=== PATIENT | female | born 1940 | race Caucasian/White ===

== ENCOUNTER 2021-09-04 11:21 | Inpatient (IN) | payer MEDICARE ==
[~2021-09-04] VITALS: Ht 157.5 cm; Wt 49.9 kg
[~2021-09-04 11:21] MED LIST: BENACAR; MECLIZINE 25 MG25 M1 PO; SYNTHROID50 MCG PO
[2021-09-04 13:11] VITALS: BP 102/43
[2021-09-04 13:37] LABS: ABSOLUTE LYMPHOCYTES 1.7 thou/uL (0.8-5.3); ABSOLUTE NEUTROPHILS 11.1 thou/uL (1.6-8.1); BASOPHILS 0.4 %; EOSINOPHILS 0.1 %; HEMATOCRIT 34.2 % (37.0-47.0); HEMOGLOBIN 11.3 gm/dL (12.0-15.0); LYMPHOCYTES 12.3 %; MCH 30.7 pg (26.0-34.0); MCHC 33.1 g/dL (28.0-37.0); MONOCYTES 7.2 %; MPV 10.4 fl. (7.2-11.1); NUCLEATED RBCS 0 /100WBC; PLATELET COUNT* 287 thou/uL (150-400); RBC 3.68 mil/uL (4.20-5.00); RDW-CV 13.3 % (10.5-14.5); WBC 13.9 thou/uL (4.0-11.0)
[2021-09-04 13:49] LABS: CALCIUM 9.1 mg/dL (8.5-10.1); CREATININE 0.9 mg/dL (0.6-1.3); POTASSIUM 3.6 mmol/L (3.5-5.1)
[2021-09-04 13:54] LABS: ALBUMIN 3.6 g/dL (3.4-5.0); TOTAL BILIRUBIN 0.8 mg/dL (<0.1-1.0); TOTAL PROTEIN 7.2 g/dL (6.4-8.2)
[2021-09-04 14:53] LABS: URINE BILIRUBIN NEGATIVE (Negative); URINE BLOOD 1+ (Negative); URINE CLARITY SL CLOUDY; URINE COLOR YELLOW; URINE GLUCOSE-RANDOM NEGATIVE (Negative); URINE KETONES 1+ (Negative); URINE PROTEIN 1+ (Negative); URINE SPECIFIC GRAVITY 1.015 (1.005-1.030); URINE UROBILINOGEN 0.2 E.U./dl (0.2-1.0)
[2021-09-04 14:54] LABS: URINE LEUKOCYTES-REFLEX 3+ (Negative); URINE NITRITE-REFLEX POSITIVE (Negative)
[2021-09-04] MEDS ORDERED: NORVASC5 MG PO (15:04)
[2021-09-04] MEDS ORDERED: AVAPRO300 MG PO (15:04)
[2021-09-04 15:05] LABS: HYALINE CASTS 0-3 Few /LPF (None Seen); MUCUS None Seen strn/LPF (None Seen); SQUAMOUS NONE SEEN /LPF (0-3)
[2021-09-04] MEDS ORDERED: LEVO-T75 MCG PO (15:05)
[2021-09-04] MEDS ORDERED: ZETIA10 MG PO (15:05)
[2021-09-04] MEDS ORDERED: FAMOTIDINE 20 M20 MG PO (15:05)
[2021-09-04] MEDS ORDERED: PROTONIX40 M2 PO (15:06)
[2021-09-04 15:07] LABS: TRIPLE PHOSPHATE CRYSTALS 0-3 Few /LPF (None Seen); URINE WBC-REFLEX >25 Many /HPF (0-5)
[2021-09-04] MEDS ORDERED: CHOLESTYRAMINE P4 GM PO (15:07)
[2021-09-04 15:08] LABS: URINE RBC 3-10 Few /HPF (0-2)
[2021-09-04] MEDS ORDERED: MECLIZINE HCL25 M1 PO (15:09)
[2021-09-04 18:29] VITALS: BP 104/41
[2021-09-04 22:30] VITALS: BP 115/45
[2021-09-05] VITALS (7 sets, daily range): BP systolic 104–125; BP diastolic 40–60
--- NOTE | 2021-09-05 13:35 | NUR ---
PT IS 81 Y/O FEMALE BOARDING IN [facility] FOR WEAKNESS AND RIGHT PROXIMAL HUMERUS FRACTURE. PT IS AXOX4 BUT FORGETFUL. PT STATES SHE WAS AT [facility] FOR A "UTI" BUT IS UNABLE TO REMEMBER WHEN. MOST OF PT'S ADMISSION HX/ASSESSMENT OBTAINED FROM PT'S DAUGHTER, DONTRELL. PT LIVES AT HOME WITH HER (WHO HAD A STROKE AND HAS PARKINSON'S). THEY WERE HAVING HOME HEALTH COME IN, HOWEVER, THE HOME HEALTH NURSING PERSONNEL HAS COVID, SO THEY HAVE BEEN UNABLE TO CHECK ON BOTH THE PT AND HER . DONTRELL IS AN ONLY CHILD AND SHE IS CHECKING IN ON HER PARENTS FREQUENTLY. DONTRELL STATES THAT PT HAS REMAINED RELATIVELY HEALTH, HAD A STROKE RECENTLY BUT HAS NOT REALLY SUFFERED ANY RESIDUALS OTHER THAN SOME WEAKNESS. PT WAS DIAGNOSED WITH CHRONIC DEPRESSIVE DISORDER (PT DENIES DEPRESSION WHEN ASKED). PT FELL THE DAY AFTER THANKSGIVING AND WAS TAKEN TO [facility]. DONTRELL STATES PT WAS IN A "CATATONIC STATE" AND VERBALLY ATTACKED DONTRELL. PT WAS DX W/UTI AT [facility]. PT THEN WENT TO [facility] 2 WEEKS. PER DONTRELL, PT HAS FALLEN SEVERAL TIMES, AND WILL DENY THAT SHE IS FALLING. PT GIVEN NORCO FOR PAIN, CATALINA CARE GIVEN. ROOM AIR. CALL LIGHT WITHIN REACH. WILL CONTINUE TO MONITOR PT CLOSELY.
--- NOTE | 2021-09-05 15:18 | NUR ---
Attempted assessment x2. Called greg Scott at: [phone] with no answer.
[2021-09-05] MEDS ORDERED: ASA81BEC PO (15:38)
[2021-09-05] MEDS ORDERED: CALCIUM500 M1 PO (15:42)
--- NOTE | 2021-09-05 16:59 | NUR ---
LM FOR CM RE: DONTRELL (DAUGHTER) WOULD BE BENEFICIAL TO CONTACT FOR PT INFORMATION.
--- NOTE | 2021-09-05 19:09 | NUR ---
PT PLACED ON BEDPAN W/NO RESULTS W/BM. PT INCONTINENT OF LARGE AMOUNT OF URINE TO WHERE IT SOAKED THE ENTIRE BED. PT ASSISTED TO CHAIR W/ASSIST OF 2, WILL REQUIRE PT/OT FOR STRENGTH TRAINING. PT DOES NOT HELP WITH TRANSFERS, STATES SHE CANNOT DO IT. PT CLEANED UP, LINENS CHANGED, PT ASSISTED BACK TO BED W/ASSIST OF 2. DURING ADMISSION ASSESSMENT, PT STATED, "I HAVE BEEN GOING TO THE BATHROOM." THIS SHIFT, HOWEVER, PT HAS BEEN ENTIRELY INCONTINENT OF URINE. PT STATED, "I DON'T KNOW WHEN IT'S COMING." SUPPORT AND REASSURANCE PROVIDED TO PT. GOALS THIS SHIFT: SKIN CARE, COMFORT AND PAIN MANAGEMENT.
--- NOTE | 2021-09-05 19:40 | NUR ---
PT TRANSFERRED UP TO ROOM 232 VIA BED. REPORT GIVEN TO JOEY VACA. BED ALARM ON FOR SAFETY. WILL LET DAUGHTER KNOW WHICH ROOM PT WENT TO.
[2021-09-06 01:05] VITALS: BP 130/59
[2021-09-06 06:15] VITALS: BP 138/55
[2021-09-06 08:00] VITALS: BP 124/54
--- NOTE | 2021-09-06 12:24 | NUR ---
CM ASSESSMENT: PT A&O, AND NORMALLY INDEPENDENT WITH ADL'S. PT RESIDES AT HOME WITH SPOUSE. PT USES A WALKER FOR MOBILITY. PT CURRENTLY RESIDES AT THE [facility] SR LIVING INDEPENDENT LIVING APARTMENTS WITH HER SPOUSE, BUT HE IS UNABLE TO ASSIST HER WITH CARES HE HAS PARKINSONS. PT NORMALLY INDEPENDENT WITH ADL'S. PT USES A WALKER FOR MOBILITY. PT D/C FROM SNF AT [facility] IN JUNE POST SHOULDER SURGERY. PT HAS HX OF HH WITH [facility]. PT'S DTR INFORMS THAT THE PT AND HER SPOUSE IS CURRENTLY ON A WAITING LIST FOR ASSISTED LIVING AT THE [facility]. PT MAY NEED TO RETURN TO SNF AT D/C AND PT AND HER DTR ARE INTEREST IN RETURNING TO [facility]. PT/OT EVALS PENDING. CM WILL REMAIN AVAILABLE TO ASSIST AND FOLLOW NEEDED.
[2021-09-06 13:06] VITALS: BP 122/82
[2021-09-06 17:39] VITALS: BP 133/78
--- NOTE | 2021-09-06 18:21 | NUR ---
PT WALKED WITH THERAPY TODAY. PT ATE A LITTLE BETTER THIS AFTERNOON, THIS PM PT CALLED OUT AT 1600 FOR PAIN PILL. PT GIVEN A PAIN PILL AT 1609. WENT IN TO PT ROOM AND SHE WAS CRYING THAT SHE NEEDED SOME IV PUSH PAIN MEDICATIONS, TO HELP HER WITH HER PAIN. EXPLAINED TO THE PT THAT SHE NEEDS TO TRY TO RELAX AND THAT THIS RN GAVE HER PAIN MEDICATIONS ALREADY AND SHE DOES NOT HAVE ANY IV PUSH MEDICATIONS. PT ROLLED HER EYES AT THIS RN. TOLD HER I WAS SORRY AND SHE CLOSED HER EYES. VSS AFEBRILE. WILL CONTINUE TO MONITOR PLAN OF CARE.
[2021-09-06 19:51] VITALS: BP 143/58
[2021-09-07 02:26] VITALS: BP 133/54
--- NOTE | 2021-09-07 05:03 | NUR ---
PATIENT HAS REMAINED ALERT AND ORIENTED X 4 WITH SOME FORGETFULNESS. RIGHT UPPER ARM IN SLING. NO NUMBNESS OR IMPAIRED CIRCULATION OF RIGHT HAND. INCONT URINE. WEARS BRIEF. VITAL SIGNS STABLE. MEDICATED X 2 FOR PAIN TO GOOD EFFECT. FALL PRECAUTIONS IN PLACE. CONTINUE TO MONITOR.
[2021-09-07 08:05] VITALS: BP 111/48
--- NOTE | 2021-09-07 10:08 | NUR ---
0993 - PT ASSISTED TO BSC FOR ATTEMPT TO HAVE BM. PT PIVOTED PT WAS VERY WEAK AND IT WAS NOT DEEMED SAFE BY THIS RN TO AMBULATE TO BATHROOM. PT BEGAN TO ATTEMPT TO HAVE BM, WAS UNSUCESSFUL AND DURING PUSHING, PT SLUMPED OVER TO LEFT SIDE OF THE COMMODE CHAIR, WAS COOL/CLAMMY, ABLE TO STATE HER NAME HOWEVER WAS WHISPERING RATHER THAN TALKING, EYELIDS LOW. PT ASSISTED BACK TO BED WITH SENIOR MEDICAL BILLING SPECIALIST. AFTER GETTING BACK TO BED, NEURO ASSESSED AGAIN PT WAS ALERT, ORIENTED X4, SPEAKING CLEARLY AND APPROPRIATE VOLUME, NO LONGER COOL/CLAMMY. BED ALARM SET, PT RESTING COMFORTABLY IN BED. [id number] - DR MADDEN NOTIFIED OF EVENT. NO FURTHER ORDERS.
--- NOTE | 2021-09-07 13:04 | NUR ---
PER PT REQ, PTS GARCÍA AND DAUGHTER DONTRELL UPDATED
--- NOTE | 2021-09-07 16:00 | NUR ---
REPORT GIVEN TO JOSE LUIS, NURSE ON REHAB. PT TO GO TO ROOM 320. PTS DAUGHTER DONTRELL UPDATED ON ROOM NUMBER AND CHANGE.
--- NOTE | 2021-09-07 16:17 | NUR ---
PLAN OF CARE: CM SPOKE TO THE PT AND HER DTR TO DISCUSS D/C PLANNING AND PLAN FOR THE PT TO D/C TO TO INPT ARU HERE TODAY. PT AND DTR IN AGREEMENT WITH THIS PLAN. PT HAD RAPID COVID TEST AND IT IS NEGATIVE. CM WILL REMAIN AVAILABLE TO ASSIST AND FOLLOW NEEDED.
== END 2021-09-07 16:20 | DRG 543 ==
LOC: M.ERS 11:21 → M.TBA-ER 14:29 → M.TBA-CV 09-05 19:13 → M.2W 09-05 19:35
PROVIDERS: Family Medicine; ADMIT Internal Medicine; ATTEND Internal Medicine
DX: M80.021A Age-related osteoporosis with current pathological fracture, right humerus, initial encounter for fracture (principal); R65.10 Systemic inflammatory response syndrome (SIRS) of non-infectious origin without acute organ dysfunction; N30.00 Acute cystitis without hematuria; E44.1 Mild protein-calorie malnutrition; R55 Syncope and collapse; Z20.822 Contact with and (suspected) exposure to COVID-19; R31.9 Hematuria, unspecified; Z82.49 Family history of ischemic heart disease and other diseases of the circulatory system; Z68.20 Body mass index [BMI] 20.0-20.9, adult; Z90.710 Acquired absence of both cervix and uterus

== ENCOUNTER 2021-09-07 14:52 | Inpatient (IN) | payer MEDICARE ==
[~2021-09-07] VITALS: Ht 157.5 cm; Wt 49.1 kg
--- NOTE | ~2021-09-07 | PROC ---
[address] [address] PROCEDURE REPORT Name: ZACHARY MEDEIROS Room: [facility] IN .R.#: [id number] Admission: 09/07/21 Attend Phys: Fernando Curtis MD Discharge: Date of : 38 Report #: [id number] THIS REPORT FOR: cc: HENRI PUGA MD, CHADWICK MD [facility],Medical Records Staff ~ For GI report, please see the Provation report in Perceptive 7 content. By: 1035Medical Records Staff KIRBY /LLOYD
--- NOTE | ~2021-09-07 | CON ---
[address] [address] CONSULTATION Name: ZACHARY MEDEIROS Room: [address] IN M.R.#: [id number] Admission: 09/07/21 Attend Phys: Fernando Curtis MD Discharge: Date of : 38 Report #: [id number] THIS REPORT FOR: cc: HENRI PUGA MD,Riana Montemayor MD, MD ~ cc: HENRI PUGA DATE OF CONSULTATION: 09/22/2021 Please note at the time of this dictation, the patient was seen and physically examined by myself. REASON FOR CONSULTATION: Persistent nausea. HISTORY OF PRESENT ILLNESS: This is an 81-year-old female who presented to the hospital with a closed fracture of her right proximal humerus. The patient then transferred to rehab to help with mobility and said she had no help at home. In talking with the patient, she states she has had this persistent nausea, which has been ongoing. She states prior to eating is when she gets extremely nauseated, but she knows that she has to eat and she chokes the food down, she states. She states when she does eat, she gets full very quickly as well. She denies any vomiting or any abdominal pain associated with this. The patient cannot recall her last colonoscopy, she cannot remember if she has had one done or not. She did have an EGD, EUS done back in 05/[address] Richardson for a pancreatic cyst. 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 The patient does state she had a long history of taking NSAIDs in the past, but has not done so here in the recent past. She does take omeprazole at home as well as famotidine for history of reflux. ALLERGIES: No known drug allergies. MEDICATIONS FROM HOME: Include levothyroxine, famotidine, Zetia, Protonix, Avapro, Norvasc, aspirin and calcium. PAST MEDICAL HISTORY: Hypertension, chronic depressive disorder, hyperlipidemia, history of a stroke and GERD. PAST SURGICAL HISTORY: Negative. FAMILY HISTORY: [place] [address] CONSULTATION Name: WALDEMARZACHARY ROBLERO Room: [address]#: [id number] Admission: 09/07/21 Attend Phys: Fernando Curtis MD Discharge: Date of : 38 Report #: [id number] SOCIAL HISTORY: The patient lives alone. Denies any alcohol, tobacco, or illegal drug use. REVIEW OF SYSTEMS: Twelve-point review of systems is essentially negative except what is mentioned in the HPI. PHYSICAL EXAMINATION: VITAL SIGNS: Temperature 36.8, pulse 67, respirations 17, blood pressure 159/68. HEART: Regular rate and rhythm. LUNGS: Diminished, but clear. ABDOMEN: Soft, positive bowel sounds in all 4 quadrants with no masses or tenderness noted. LABORATORY DATA: Hemoglobin is 10.9, which she has trended from 9.4 to 10.9 since her admission. White count is 7.6, platelets are 496. Sodium is 132, potassium is normal at 4.1. Her GFR is 80. Her LFTs show total bilirubin of 0.5, alkaline phosphatase of 156, ALT is 76 and AST is 32. Abdominal x-ray shows nonobstructive bowel gas pattern with moderate to large amount of retained stool throughout the colon and rectum. IMPRESSION: 1. Nausea persistent prior to eating. 2. Early satiety. 3. Anemia. 4. Elevated ALT and AST. 5. History of NSAID use in the past. 6. History of pancreatic cyst in 05/2020, status post EUS, ERCP, felt likely it was a side branch IPMN, but not seen since that procedure and followup. 7. Closed right humerus fracture. PLAN: 1. GET 4 hours to evaluate for her persistent nausea and her early satiety prior to the weekend. 2. If negative, can proceed with an EGD with Dr. Goff to evaluate her ongoing nausea. 3. We will get iron studies, B12, folate, ferritin, and a soluble transferrin receptor to evaluate her anemia. 4. Further recommendations to be made after Dr. Goff sees the patient [place] [address] CONSULTATION Name: WALDEMARZACHARY M Room: [facility] ADM IN [facility]#: [id number] Admission: 09/07/21 Attend Phys: Fernando Curtis MD Discharge: Date of : 38 Report #: [id number] Thank you for allowing us to participate in this patient's care. Please do not hesitate to call with any questions regarding this consult. By: [id number] Goff MD /leena
[~2021-09-07 14:52] MED LIST changes: +ASA81BEC PO; +AVAPRO300 MG PO; +CALCIUM500 M1 PO; +CHOLESTYRAMINE P4 GM PO; +FAMOTIDINE 20 M20 MG PO; +LEVO-T75 MCG PO; +MECLIZINE HCL25 M1 PO; +NORVASC5 MG PO; +PROTONIX40 M2 PO; +ZETIA10 MG PO
--- NOTE | 2021-09-07 18:04 | NUR ---
PT ADMITTED FROM ROOM 232. R HUMOROUS FX. SLING IN PLACE. NWB TO BHANU. DR CASILLAS NOTIFIED OF CONSULT. STATED THAT FX IS NONOPERATAL AND HE SAW HER TODAY. DR MADDEN ALSO NOTIFIED OF CONSULT. PT LIVES AT HOME WITH HER . UP WITH GAIT BELT, WALKER AND ASSIST X1. PT REPORTEDLY VASO VAGLED TODAY WHILE PREVIOUS TO BEING ADMITTED HERE. CALL LIGHT IN REACH. FALL PRECAUTIONS IN PLACE.
[2021-09-07 19:00] VITALS: BP 125/62
[2021-09-08 04:18] LABS: HEMATOCRIT 28.3 % (37.0-47.0); HEMOGLOBIN 9.4 gm/dL (12.0-15.0); MCH 30.9 pg (26.0-34.0); MCHC 33.2 g/dL (28.0-37.0); MCV 93.2 fL (80.0-100.0); MPV 9.7 fl. (7.2-11.1); RBC 3.03 mil/uL (4.20-5.00); RDW-CV 13.8 % (10.5-14.5); WBC 10.4 thou/uL (4.0-11.0)
[2021-09-08 05:05] LABS: ALBUMIN 2.5 g/dL (3.4-5.0); CALCIUM 8.3 mg/dL (8.5-10.1); CREATININE 0.7 mg/dL (0.6-1.3); TOTAL BILIRUBIN 0.5 mg/dL (<0.1-1.0); TOTAL PROTEIN 5.8 g/dL (6.4-8.2)
--- NOTE | 2021-09-08 05:08 | NUR ---
ASSUMED CARE AT 1920. ALERT AND ORIENTED. PLEASANT. RIGHT HUMERUS FRACTURE. NWB RUE IN SLING. NORCO GIVEN NEEDED. INCONTINENCE. SLEPT OFF AND ON. CALL LIGHT IN REACH AND BED ALARM ON.
[2021-09-08 07:48] VITALS: BP 123/59
--- NOTE | 2021-09-08 16:34 | NUR ---
PATIENT COMPLETED THERAPY THIS SHIFT ORDERED. UP WITH ASSISTANCE; GAIT BELT AND WALKER. RIGHT ARM SLING IN PLACE, PT HAD REPLACED THIS SHIFT WITH LARGER SLING. DR. CANDELARIO HERE THIS AFTERNOON TO SEE PATIENT, NO NEW ORDERS. PRN HYDROCODONE GIVEN X 1 THIS SHIFT. PATIENT INCONTINENT AT TIMES, DID HAVE VERY SMALL BM. WILL CONTINUE TO PRN MIRALAX/COLACE.
[2021-09-08 19:00] VITALS: BP 126/52
--- NOTE | 2021-09-08 23:22 | NUR ---
ASSUMED CARE AT 1930. PATIENT RESTING IN BED WITH SLING ON RUE. INCONTINENT OF URINE, PADS CHANGED, SKIN CARE GIVEN. TURNS SELF. UP WITH ONE AND CANE. HOURLY ROUNDS CONTINUE. BED ALARM ON. CALL LITE IN REACH.
--- NOTE | 2021-09-09 06:36 | NUR ---
SLEPT MUCH OF THE NIGHT. INCONTINENT OF URINE THROUGH NIGHT. SKIN CARE DONE, MOISTURE BARRIER APPLIED. MEDICATED FOR PAIN, SEE MAR. SLING ON RT ARM CONTINUES. ABLE TO PUSH SELF UP IN BED WHEN IT IS FLAT, AND USES HER LEFT (GOOD) ARM TO ASSIST IN RISING IN BED. HOURLY ROUNDS CONTINUE. BED ALARM ON. CALL LITE IN REACH.
[2021-09-09 08:17] VITALS: BP 125/62
--- NOTE | 2021-09-09 09:25 | NUR ---
Nutrition: Pt admitted to rehab with humerus FX. Wt: 110#. Regular diet. Albumin 2.5. PMHx, meds reviewed. No nutrition concerns at this time. Will follow weekly. Low risk.
--- NOTE | 2021-09-09 11:32 | NUR ---
ORTHO BP LAYING-114/49 SITTING-98/41 STANDING-78/48
[2021-09-09 12:54] LABS: HEMATOCRIT 30.9 % (37.0-47.0); HEMOGLOBIN 10.2 gm/dL (12.0-15.0); MCH 30.7 pg (26.0-34.0); MCHC 33.1 g/dL (28.0-37.0); MCV 92.6 fL (80.0-100.0); MPV 9.4 fl. (7.2-11.1); RBC 3.33 mil/uL (4.20-5.00); RDW-CV 13.5 % (10.5-14.5); WBC 13.1 thou/uL (4.0-11.0)
--- NOTE | 2021-09-09 13:23 | NUR ---
Admit to ARU 09/07/21 1625 post hospital admission for orthostatic syncope which resulted in Humerous fx 09/04/21. Fx medical managed/immobilized. Case and plan of care reviewed with physician and therapist weekly during patient's length of stay. Continue plan of care per physician's orders for PT/OT/ST. Spoke to pts spouse Tyler [phone] who shared pt [facility] ADLs prior to fall. Uses walker, he is unable to assist her much due to Parkinsons and Dtr Ju reports Tyler has also had a stroke. Couple currently reside in [facility] but are on a waitlist for Assisted living Sr Apartment at [place] also. Tyler requested that dtr, Ju, to be called for weekly updates as she will also be one to physically visit pt. Spoke to Dtr Ju Vigil [phone], confirmed above information from spouse. Shared pt has hx with [facility] in [place] [phone]. Both oriented to ARU processes, team conferences, and CM role.
--- NOTE | 2021-09-09 18:06 | NUR ---
PT UP WITH GAIT BELT AND 1 ASST. PT IS NON WB WITH RT ARM. PT ON RM AIR. PT FELT DIZZY AND HAD NAUSEA THIS SHIFT. PT BP WAS DROPPING WHEN SHE WAS WITH THERAPY. ORTHO BP WERE LAYING 114/49 SITTING -98/41 STANDING -78-48. DR MADDEN ORDERED 1 TIME 1000ML NS. IV WAS PLACED IN LT AC. BP AFTER WAS 129/78. PT WAS ALSO GIVEN ZOFRAN FOR NAUSEA. PT FEELING BETTER SITTING IN CHAIR, WITH CALL LIGHT IN REACH AND FALL PRECAUTIONS IN PLACE.
[2021-09-09 19:42] VITALS: BP 118/47
--- NOTE | 2021-09-10 05:11 | NUR ---
ASSUMED PT CARE AT 1930. PT SITTING UP IN RECLINER AT SHIFT CHANGE. TRANSFERRED TO [facility] [place]IST OF ONE, STAND PIVOT, STOOL 1. PT WEARING SLING TO RUE. WEARS SLING OVERNIGHT. INCONTINENT OF URINE, PERICARE PROVIDED. TURNS SELF. NORCO ONCE FOR ARM PAIN AND TYLENOL ONCE PER PT REQUEST. PT IS VERY ANXIOUS, WANTING EXPLANATION OF EACH MED ON THE MAR STATING SHE THINKS THAT THE ANTIDEPRESSANT IS MAKING HER STOMACHE ACHE AND STATING SHE DOESN'T UNDERSTAND WHY SHE IS RECEIVING MODAFINIL. PT GIVEN VANILLA PUDDING BEFORE NORCO AFTER PT STATED SHE HAD NOT EATEN WELL YESTERDAY. PT SLEPT WELL OVERNIGHT. EXACTING WITH CARES. CALL LIGHT IN REACH, BED ALARM ON FOR SAFETY. HOURLY ROUNDING IN PROGRESS, WILL CONTINUE TO MONITOR.
[2021-09-10 07:20] VITALS: BP 138/60
[2021-09-10 13:00] VITALS: BP 122/53
[2021-09-10 14:34] LABS: URINE BILIRUBIN NEGATIVE (Negative); URINE BLOOD TRACE (Negative); URINE CLARITY CLEAR; URINE COLOR YELLOW; URINE GLUCOSE-RANDOM NEGATIVE (Negative); URINE KETONES NEGATIVE (Negative); URINE LEUKOCYTES NEGATIVE (Negative); URINE NITRITE NEGATIVE (Negative); URINE PROTEIN NEGATIVE (Negative); URINE SPECIFIC GRAVITY 1.015 (1.005-1.030); URINE UROBILINOGEN 0.2 E.U./dl (0.2-1.0)
[2021-09-10 14:43] LABS: ALBUMIN 3.2 g/dL (3.4-5.0); CALCIUM 8.6 mg/dL (8.5-10.1); CREATININE 0.7 mg/dL (0.6-1.3); POTASSIUM 3.5 mmol/L (3.5-5.1); TOTAL BILIRUBIN 0.6 mg/dL (<0.1-1.0); TOTAL PROTEIN 6.6 g/dL (6.4-8.2)
--- NOTE | 2021-09-10 17:46 | NUR ---
PT WORKED WITH THERAPIES WITH ENCOURAGEMENT. REPORTED THAT SHE DID NOT FEEL WELL BUT WAS UNABLE TO BE MORE SPECIFIC. DR FULLER AND DR MADDEN NOTIFIED. UA SENT AND LABS DRAWN. SEE RESULTS. ORDER FOR PRN ZOFRAN AND WAS GIVEN TO PT. PT HAS BEEN CONFUSED AND FORGETFUL. PT TOOK A NAP THIS AFTERNOON AND REPORTED FEELING BETTER AFTER SHE WOKE UP. INCONT OF BLADDER. UP WITH CANE And ASSIST X1. REFUSED CITALOPRAM AND MODAFINIL THIS AM. DR MADDEN NOTIFIED. PRN PAIN MEDICATION GIVEN PER PT REQUEST. CALL LIGHT IN REACH. FALL PRECAUTIONS IN PLACE.
[2021-09-10 19:00] VITALS: BP 119/62
[2021-09-11 04:36] LABS: ABSOLUTE EOSINOPHILS 0.2 thou/uL (0.0-0.7); ABSOLUTE LYMPHOCYTES 2.1 thou/uL (0.8-5.3); ABSOLUTE NEUTROPHILS 4.3 thou/uL (1.6-8.1); BASOPHILS 0.2 %; EOSINOPHILS 2.8 %; HEMATOCRIT 29.8 % (37.0-47.0); HEMOGLOBIN 9.9 gm/dL (12.0-15.0); LYMPHOCYTES 27.5 %; MCH 30.7 pg (26.0-34.0); MCHC 33.3 g/dL (28.0-37.0); MCV 92.1 fL (80.0-100.0); MONOCYTES 12.8 %; MPV 9.2 fl. (7.2-11.1); NUCLEATED RBCS 0 /100WBC; PLATELET COUNT* 452 thou/uL (150-400); POLYS 56.7 %; RBC 3.23 mil/uL (4.20-5.00); RDW-CV 13.4 % (10.5-14.5); WBC 7.6 thou/uL (4.0-11.0)
--- NOTE | 2021-09-11 04:47 | NUR ---
ASSUMED PT CARE AT 1930. PT ALERT AND ORIENTED, COOPERATIVE WITH CARES. UP TO BSC WITH GAIT BELT, CANE AND ASSIST OF ONE. STOOL X1. INCONTINENT OF URINE. NO PRN PAIN MEDICATION THIS SHIFT. PT SLEPT WELL OVERNIGHT. CALL LIGHT IN REACH, BED ALARM ON FOR SAFETY. HOURLY ROUNDING IN PROGRESS, WILL CONTINUE TO MONITOR.
[2021-09-11 07:30] VITALS: BP 130/59
[2021-09-11 12:37] LABS: ALBUMIN 3.6 g/dL (3.4-5.0); CALCIUM 9.1 mg/dL (8.5-10.1); POTASSIUM 3.3 mmol/L (3.5-5.1); TOTAL BILIRUBIN 0.9 mg/dL (<0.1-1.0)
[2021-09-11 14:00] VITALS: BP 109/50
[2021-09-11 14:02] VITALS: BP 76/37
--- NOTE | 2021-09-11 15:53 | NUR ---
ALERT AND ORIENTED X4 WITH PERIODS OF FORGETFULNESS. UP WITH 1 ASSIST, GAIT BELT AND CANE. PATIENT C/O FEELING SHAKY WHEN UP. DR NOTIFIED OF ORTHOSTATIC B/P AND PULSE. IVF STARTED AND INFUSING WITHOUT DIFFICULTY. PATIENT C/O NAUSEA WITH MEALS. NEW ORDER FOR ZOFRAN BEFORE MEALS. HAS SLING ON RIGHT ARM AT ALL TIMES. RIGHT ARM REMAINS NONWEIGHTBEARING. HAS LARGE AMOUNT OF FADING BRUISING ON TORSO AND RIGHT ARM. USES CALL LIGHT WITHIN REACH. FALL PRECAUTIONS IN PLACE.
[2021-09-11 19:36] VITALS: BP 105/48
[2021-09-12] VITALS (7 sets, daily range): BP systolic 99–144; BP diastolic 45–70
[2021-09-12 05:14] LABS: ABSOLUTE BASOPHILS 0.1 thou/uL (0.0-0.2); ABSOLUTE EOSINOPHILS 0.1 thou/uL (0.0-0.7); ABSOLUTE LYMPHOCYTES 1.6 thou/uL (0.8-5.3); ABSOLUTE NEUTROPHILS 7.8 thou/uL (1.6-8.1); BASOPHILS 0.7 %; EOSINOPHILS 1.4 %; HEMATOCRIT 28.8 % (37.0-47.0); HEMOGLOBIN 9.9 gm/dL (12.0-15.0); LYMPHOCYTES 15.2 %; MCH 31.4 pg (26.0-34.0); MCHC 34.3 g/dL (28.0-37.0); MCV 91.6 fL (80.0-100.0); MONOCYTES 9.5 %; MPV 8.8 fl. (7.2-11.1); NUCLEATED RBCS 0 /100WBC; PLATELET COUNT* 482 thou/uL (150-400); POLYS 73.2 %; RBC 3.15 mil/uL (4.20-5.00); RDW-CV 13.6 % (10.5-14.5); WBC 10.7 thou/uL (4.0-11.0)
--- NOTE | 2021-09-12 05:18 | NUR ---
ASSUMED CARES AT 1920. ALERT AND ORIENTED. NWB RUE WITH SLING. C/O FEELING NAUSEAUS. ZOFRAN GIVEN. TYLENOL FOR RUE PAIN. SALINE LOCK LEFT AC. URINARY INCONTINENCE. SLEPT LITTLE. CALL LIGHT IN REACH AND BED ALARM ON.
[2021-09-12 11:03] LABS: ALBUMIN 3.1 g/dL (3.4-5.0); CALCIUM 8.6 mg/dL (8.5-10.1); CREATININE 0.8 mg/dL (0.6-1.3); POTASSIUM 3.4 mmol/L (3.5-5.1); TOTAL BILIRUBIN 0.5 mg/dL (<0.1-1.0); TOTAL PROTEIN 5.9 g/dL (6.4-8.2)
--- NOTE | 2021-09-12 16:49 | NUR ---
ALERT AND ORIENTED X4 WITH PERIODS OF FORGETFULNESS. UP WITH 1 ASSIST, GAIT BELT AND CANE. USE PO TYLENOL FOR PAIN. TAKES PILLS WITHOUT DIFFICULTY. INCONTINENT OF URINE BUT CONTINENT OF BOWEL. NAUSEA MEDICATION HELPFUL. USES CALL LIGHT FOR ASSIST. FALL PRECAUTIONS IN PLACE.
--- NOTE | 2021-09-12 16:52 | NUR ---
ALERT AND ORIENTED X4. UP WITH 1 ASSIST,GAIT BELT AND WALKER. REMAINS 25% WEIGHTBEARING TO LEFT LOWER LEG. DRESSING REMAINS DRY INTACT OVER LEFT LOWER EXTREMITY. USES PO PAIN MEDICATION TO HELP WITH PAIN. NEW ORDER TODAY TO FOLLOW PATIENT'S HOME INSULIN SLIDING SCALE. USES CALL LIGHT FOR ASSIST. FALL PRECAUTIONS IN PLACE.
--- NOTE | 2021-09-13 04:50 | NUR ---
ASSUMED PT CARE AT 1930. PT ALERT AND ORIENTED X4. NWB RUE IN SLING. NO C/O NAUSEA, PT ON SCHEDULED ZOFRAN. PRN TYLENOL AT HS FOR RIGHT ARM PAIN. SALINE LOCK TO LEFT AC. INCONTINENT OF URINE. NO STOOL THIS SHIFT. CALL LIGHT IN REACH, BED ALARM ON FOR SAFETY. HOURLY ROUNDING IN PROGRESS, WILL CONTINUE TO MONITOR.
[2021-09-13 05:29] LABS: ABSOLUTE BASOPHILS 0.1 thou/uL (0.0-0.2); ABSOLUTE EOSINOPHILS 0.2 thou/uL (0.0-0.7); ABSOLUTE LYMPHOCYTES 1.9 thou/uL (0.8-5.3); ABSOLUTE MONOCYTES 0.8 thou/uL (0.0-1.2); ABSOLUTE NEUTROPHILS 6.7 thou/uL (1.6-8.1); BASOPHILS 0.7 %; EOSINOPHILS 2.3 %; HEMATOCRIT 30.3 % (37.0-47.0); HEMOGLOBIN 10.2 gm/dL (12.0-15.0); LYMPHOCYTES 19.7 %; MCH 31.3 pg (26.0-34.0); MCHC 33.6 g/dL (28.0-37.0); MPV 8.6 fl. (7.2-11.1); NUCLEATED RBCS 0 /100WBC; PLATELET COUNT* 525 thou/uL (150-400); POLYS 69.3 %; RBC 3.26 mil/uL (4.20-5.00); RDW-CV 13.8 % (10.5-14.5); WBC 9.6 thou/uL (4.0-11.0)
[2021-09-13 07:20] VITALS: BP 118/51; BP 118/56; BP 137/58
--- NOTE | 2021-09-13 16:02 | NUR ---
Attempted to call Ju Vigil, Dtr [phone] Left Voicemail with Cm # for any concerns/questions prior to team meeting 09/14/21 Approx 30 minutes later Ju called back. Shared she spoke to Dr White about need to facilitate Assisted Living for pt at time of discharge. Currently pt and spouse are on [place] waitlist at [place] but didn't know if needed to look elsewhere. Ju reports Dr White said they will discuss this team meeting tomorrow.
--- NOTE | 2021-09-13 16:38 | NUR ---
PATIENT COMPLETED THERAPIES ORDERED THIS SHIFT. UP WITH ASSISTANCE; GAIT BELT AND WALKER. RIGHT ARM SLING IN PLACE. PRN TYLENOL GIVEN PER PATIENT REQUEST, PATIENT REFUSED VICODIN OR CALL TO PHYSICIAN FOR EXTRA STRENGTH TYLENOL. ICE TO RIGHT SHOULDER PRN. PATIENT INCONTINENT OF URINE THIS SHIFT. PRN MIRALAX/COLACE/MOM GIVEN. PATIENT HAD ABD XRAY AND CXR XRAY THIS SHIFT, DR. MADDEN AWARE OF RESULTS. IV WAS REPLACED TO LEFT FA AND IV BOLUS GIVEN ORDERED FOR ORTHOSTATIC VALUES. JOSH GOMEZ ORDERED THIS SHIFT AND PLACED.
[2021-09-13 19:00] VITALS: BP 117/56
[2021-09-13 19:02] VITALS: BP 136/69
[2021-09-13 19:04] VITALS: BP 102/57
[2021-09-14 05:25] LABS: HEMATOCRIT 30.1 % (37.0-47.0); HEMOGLOBIN 10.1 gm/dL (12.0-15.0); MCH 30.8 pg (26.0-34.0); MCHC 33.5 g/dL (28.0-37.0); MPV 9.1 fl. (7.2-11.1); RBC 3.28 mil/uL (4.20-5.00); RDW-CV 13.8 % (10.5-14.5); WBC 10.2 thou/uL (4.0-11.0)
[2021-09-14 05:30] LABS: CALCIUM 8.6 mg/dL (8.5-10.1); CREATININE 0.8 mg/dL (0.6-1.3); POTASSIUM 3.8 mmol/L (3.5-5.1)
--- NOTE | 2021-09-14 05:36 | NUR ---
ASSUMED PT CARE AT 1930. PT ALERT AND ORIENTED X4, COOPERATIVE WITH CARES. SLING TO RIGHT ARM, NWB. PRN TYLENOL FOR PAIN. INCONTINENT OF URINE. NO STOOL THIS SHIFT. SL TO LEFT FOREARM. CALL LIGHT IN REACH, BED ALARM ON FOR SAFETY. HOURLY ROUNDING IN PROGRESS, WILL CONTINUE TO MONITOR.
[2021-09-14 08:00] VITALS: BP 124/56
--- NOTE | 2021-09-14 15:37 | NUR ---
Case and plan of care reviewed during weekly team meeting with physician and therapies today. Plans is to reteam again next week. Pt noted by therapist to appear depressed. Hospitalist present in meeting, who shared spoke to pt and she did not feel a consult psych was needed, did agree to medication. Citalosporine ordered. Nurse reported bowel and bladder incont. When nurse asked pt why incont pt reported she was told to just go in bed versus getting up. Pt having issues with constipation, causing nausea and lack of appetite. Bowel program initiated by hospitalist and pt is having results. Dr White ordered dietary consult for protein supplement drinks. Dr hWite talked to pt about need to moving more and using the restroom. Pt agreed to work on being more active, out of bed, and using restroom or commode. Spoke to Karin Dodd to given update after team meeting. Dtr reported mom acting depressed,as before. Shared this had been evaluated and medication started. Dtr reported pt had been on this med before and didn't like the way it made her feel. Shared other info about bowel program, need to be more active, and dtr said she tried to just lay in bed at home, wore a depends, and told dtr she was told to not move very much and use depends. dtr had her get up and go to restroom also. Ju shared she is touring other assisted living facilities as back up options if [facility] doesn't become available by time pt and her spouse need it. They are on a waiting list.
--- NOTE | 2021-09-14 18:19 | NUR ---
AM ASSESSMENT AND VITAL SIGNS COMPLETED DOCUMENTED. PT WAS INCONTINENT OF BOWEL AND BLADDER 4X THIS AM. PT DID STAY UP FOR A COUPLE HOURS TODAY BUT HAS BEEN IN BED THIS AFTERNOON COMPLAINING OF NAUSEA, SCHEDULED ZOFRAN GIVEN WITHOUT IMPROVEMENT. VITAL SIGNS WNL, LABS WNL. REASSURANCE OFFERED.
[2021-09-14 19:00] VITALS: BP 142/66
--- NOTE | 2021-09-15 06:49 | NUR ---
ASSUMED PT CARE AT 1930. ASSESSMENT COMPLETED CHARTED. ABLE TO MAKE NEEDS KNOWN. CALLED OUT FREQUENTLY DURING THE NIGHT STATING SHE WAS NAUSEOUS AND DIDN'T FEEL GOOD. C/O ARM PAIN AT HS AND GAVE PRN PAIN MEDICATION. NAUSEA MEDICATIONS GIVEN SCHEDULED AND MYLANTA GIVEN PRN. NOTIFIED DR OF INCREASED NAUSEA AND OF NOT FEELING GOOD, N.N.O. PT RESTING IN BED AT THIS TIME STATING SHE FEELS A LITTLE BETTER. WILL CONTINUE TO MONITOR.
[2021-09-15 07:54] VITALS: BP 147/66
[2021-09-15 07:55] VITALS: BP 98/36
[2021-09-15 07:56] VITALS: BP 81/45
--- NOTE | 2021-09-15 16:13 | NUR ---
PT WITH ORTHOSTATIC HYPOTENSION. NS 1L BOLUS GIVEN. PT CONTINUES TO REPORT NAUSEA AND HAD EMESIS X1 TODAY. NEW IV ACCESS OBTAINED AFTER PREVIOUS ONE CAME OUT DURING THERAPY. INCONT OF B/B AT TIMES. CATALINA CARE AND BRIEF CHANGED PRN. DAUGHTER HERE TO VISIT. PRN PAIN MEDICATION GIVEN PER PT REQUEST. CALL LIGHT IN REACH. FALL PRECAUTIONS IN PLACE.
[2021-09-15 19:59] VITALS: BP 127/60
[2021-09-15 20:01] VITALS: BP 141/56
[2021-09-15 20:04] VITALS: BP 139/59
--- NOTE | 2021-09-16 05:36 | NUR ---
ASSUMED CARES AT 1915. ALERT AND ORIENTED. NWB RUE IN SLING. NO N/V BUT STILL WANTED TO TAKE SCHEDULED ZOFRAN. SALINE LOCK TO LFA. URINARY INCONTINENCE. CALL LIGHT IN REACH AND BED ALARM ON.
[2021-09-16 07:30] VITALS: BP 132/57
[2021-09-16 07:40] VITALS: BP 113/35; BP 93/44
[2021-09-16 07:42] VITALS: BP 132/57
--- NOTE | 2021-09-16 16:39 | NUR ---
PATIENT COMPLETED THERAPIES THIS SHIFT ORDERED. UP WITH ASSISTANCE; GAIT BELT AND CANE. RIGHT UPPER EXTREMITY REMAINS IN SLING. PRN TYLENOL GIVEN X 2 THIS SHIFT, GOOD RELIEF NOTED. VOIDING PER BSC, PASSING FLATUS BUT NO STOOL NOTED. PATIENT WAS INCONTINENT X 1. JOSH HOSE IN PLACE. DR. MARRFUO WAS NOTIFIED THIS AM OF ORTHOSTATIC RESULTS, NO NEW ORDERS RECEIVED.
--- NOTE | 2021-09-16 19:45 | NUR ---
RESTING IN BED. RIGHT ARM SLING INTACT. RIGHT FINGERS PINK/WARM. INCONTINENT OF URINE. CATALINA CARE GIVEN. REQUIRES MOTIVATION TO GET OUT OF BED TO USE THE BEDSIDE COMMODE. ANXIOUS. CALL LIGHT WITIN REACH.
[2021-09-16 19:57] VITALS: BP 120/63; BP 123/55
[2021-09-16 19:58] VITALS: BP 148/61
--- NOTE | 2021-09-17 05:17 | NUR ---
RESTED ON/OFF. UP TO BEDSIDE COMMODE DURING THE NIGHT TO VOID. NO MORE INCONTINENT EPISODES. TYLENOL GIVEN PER REQUEST FOR COMPLAINT OF BACK PAIN WITH RELIEF. HOURLY ROUNDING IN PROGRESS.
[2021-09-17 07:30] VITALS: BP 105/81
[2021-09-17 07:38] VITALS: BP 93/47
[2021-09-17 07:41] VITALS: BP 147/63
--- NOTE | 2021-09-17 18:05 | NUR ---
AM ASSESSMENT AND VITAL SIGNS COMPLETED DOCUMENTED. PT REFUSED TO GET UP TO CHAIR TODAY DESPITE STRONG ENCOURAGEMENT. PT HAS BEEN INCONTINENT 3X AND AMBULATED TO THE BATHROOM 4X. ZOFRAN GIVEN PRIOR TO ALL MEALS. PT'S DAUGHTER UPDATED ON TODAY'S BEHAVIOR. RIGHT ARM REMAINS IN A SLING, NWB STATUS MAINTAINED. FALL PRECAUTIONS AND HOURLY ROUNDING CONTINUE.
[2021-09-17 20:00] VITALS: BP 138/57
--- NOTE | 2021-09-18 05:17 | NUR ---
ASSUMED PT CARE AT 1930. PT ALERT AND ORIENTED X4, COOPERATIVE WITH CARES. SLING TO RIGHT ARM INTACT. NWB RUE. TYLENOL AT HS FOR RIGHT ARM PAIN. SALINE LOCK LFA. INCONTINENT OF URINE. CALL LIGHT IN REACH, BED ALARM ON FOR SAFETY. HOURLY ROUNDING IN PROGRESS, WILL CONTINUE TO MONITOR.
[2021-09-18 08:13] VITALS: BP 139/68
--- NOTE | 2021-09-18 18:10 | NUR ---
PT WAS INITIALLY VERY RESISTANT TO GETTING OUT OF BED OR AMBULATING. EXTENSIVE EDUCATION PROVIDED REGARDING GOALS AND THE NEED TO PROGRESS. PT GOT UP IN A CHAIR FOR LUNCH AND AMBUALATED IN THE [place] ONCE. AFTER FURTHER ENCOURAGEMENT SHE DID GET OUT OF BED ONCE MORE AND SAT IN A CHAIR FOR TWO HOURS.
[2021-09-18 20:00] VITALS: BP 148/68
--- NOTE | 2021-09-19 04:44 | NUR ---
ASSUMED PT CARE AT 1930. PT ALERT AND ORIENTED X4, POLITE AND COOPERATIVE WITH CARES. PT IN BETTER MOOD THAN USUAL. IN BED AT SHIFT CHANGE BUT CALLED OUT ON TWO OCCASIONS TO GET UP AND USE BSC TO VOID. TYLENOL AT HS FOR RIGHT ARM PAIN. PT C/O OF INDIGESTION, MYLANTA GIVEN WITH PARTIAL RELIEF. PRN ZOFRAN PER PT REQUEST. CALL LIGHT IN REACH, BED ALARM ON FOR SAFETY. HOURLY ROUNDING IN PROGRESS, WILL CONTINUE TO MONITOR.
[2021-09-19 07:30] VITALS: BP 143/65
[2021-09-19 07:32] VITALS: BP 120/63
[2021-09-19 07:34] VITALS: BP 93/39
--- NOTE | 2021-09-19 11:04 | CON ---
[address] [address] CONSULTATION Name: ZACHARY MEDEIROS Room: [address] IN .R.#: [id number] Admission: 09/07/21 Attend Phys: Fernando Curtis MD Discharge: Date of : 36 Report #: [id number] THIS REPORT FOR: cc: HENRI PUGA MD, CHADWICK MD Greiner, Robert F. II DO ~ DATE OF CONSULTATION: 09/10/2021 ORTHOPEDIC CONSULTATION CHIEF COMPLAINT: Right humerus fracture. HISTORY OF PRESENT ILLNESS: The patient is an 81-year-old female, previous presentation of closed right humerus fracture when she fell, came to the ER approximately just over a week ago when she went to use the restroom. Pain is currently tolerable, lasts for several hours throughout the day, can get to 4/10, increases with use, decreases with rest. The patient has been getting some pain medications, which help and is here for further evaluation. MEDICAL PROBLEMS: UTI, sepsis, weakness and closed fracture right proximal humerus. ALLERGIES: No known. SOCIAL HISTORY: The patient denies any tobacco, alcohol, or illicit drug use. FAMILY HISTORY: Noncontributory. PAST SURGICAL HISTORY: Hysterectomy. MEDICATIONS: Listed in the chart and H and P. REVIEW OF SYSTEMS: A 12-system review of systems is performed and negative except for pertinent positives in the HPI. PHYSICAL EXAMINATION: GENERAL: The patient is alert, cooperative, and oriented. HEENT: Head normocephalic, atraumatic. PERRLA. EOMI. CARDIOVASCULAR: Regular rhythm. S1, S2. Normal peripheral pulses. LUNGS: Clear to auscultation bilaterally. Normal air movement. ABDOMEN: Soft. No guarding. Abdomen with positive bowel sounds and no HSM. SKIN: Normal color. No rashes, no nodules. EXTREMITIES: No clubbing, cyanosis or edema. The patient has pain with right shoulder with forward flexion and extension. The patient is able to obtain 10 degrees at this time. Elbow and wrist have [place] [address] CONSULTATION Name: ZACHARY MEDEIROS Room: [address] IN [facility].#: [id number] Admission: 09/07/21 Attend Phys: Fernando Curtis MD Discharge: Date of : 38 Report #: [id number] weakness due to pain. NEUROLOGIC: The patient has normal sensation throughout the upper and lower extremities. Normal speech. PSYCHOLOGIC: The patient is alert, cooperative. IMAGING: X-ray evaluation of the right shoulder shows an impacted right proximal femur fracture of the head and neck and overall good alignment. ASSESSMENT: 1. Right proximal humerus fracture. 2. Sepsis. 3. High blood pressure. 4. Urinary tract infection. PLAN: At this time, the patient is advised on nonoperative treatment of the proximal humerus fracture as it is in good alignment. We would recommend gentle pendulum exercises and passive range of motion at this time, 0-90 degrees. The patient is to continue sling for the time being. We will continue to monitor for improvements and with serial x-rays to advance her range of motion. At this time, nonweightbearing on the right upper extremity. I appreciate this consultation. <ELECTRONICALLY SIGNED> By: Derrick Munguia II, DO 09/19/21 1104 [id number] Munguia II, DO /nt
--- NOTE | 2021-09-19 15:55 | NUR ---
CM SPOKE TO THE PT TO DISCUSS ANY QUESTIONS OR CONCERNS THAT SHE MAY HAVE FOR THIS WEEKS TEAM [facility] MEETING. PT HAS NO QUESTIONS OR CONCERNS AT THIS TIME. CM ATTEMPTED TO CONTACT PT'S DTR CUBA. NO ANSWER, BUT CM LEFT A VOICMEAIL FOR HER TO RETURN CALL WITH ANY QUESTIONS OR CONCERNS. CM WILL REMAIN AVAILABLE TO ASSIST AND FOLLOW NEEDED.
--- NOTE | 2021-09-19 17:15 | NUR ---
ALERT AND ORIENTED X4 WITH PERIODS OF FORGETFULNESS. UP WITH 1 ASSIST, GAIT BELT AND QUAD CANE. USES PO PAIN MEDICATION TO HELP WITH PAIN. TAKES PILLS WITHOUT DIFFICULTY. VOIDS FREQUENTLY AND AT TIMES IS INCONTINENT. CONTINENT OF BOWELS. USES CALL LIGHT FOR ASSIST. FALL PRECAUTIONS IN PLACE.
[2021-09-19 19:00] VITALS: BP 146/58
[2021-09-19 19:02] VITALS: BP 133/65
[2021-09-19 19:04] VITALS: BP 103/60
[2021-09-19 23:05] LABS: URINE BILIRUBIN NEGATIVE (Negative); URINE BLOOD TRACE (Negative); URINE CLARITY CLEAR; URINE COLOR YELLOW; URINE GLUCOSE-RANDOM NEGATIVE (Negative); URINE KETONES NEGATIVE (Negative); URINE LEUKOCYTES-REFLEX 1+ (Negative); URINE NITRITE-REFLEX NEGATIVE (Negative); URINE PROTEIN NEGATIVE (Negative); URINE SPECIFIC GRAVITY <= 1.005 (1.005-1.030); URINE UROBILINOGEN 0.2 E.U./dl (0.2-1.0)
[2021-09-20 00:41] LABS: CASTS None Seen /LPF (None Seen); SQUAMOUS 0-3 Few /LPF (0-3)
[2021-09-20 00:42] LABS: CRYSTALS None Seen /LPF (None Seen); URINE RBC 0-2 Rare /HPF (0-2)
[2021-09-20 07:30] VITALS: BP 104/44; BP 148/64; BP 96/43
[2021-09-20 19:00] VITALS: BP 140/59
[2021-09-20 19:02] VITALS: BP 141/60
[2021-09-20 19:04] VITALS: BP 94/51
[2021-09-21] VITALS (7 sets, daily range): BP systolic 78–167; BP diastolic 43–67
[2021-09-21 05:05] LABS: HEMATOCRIT 32.5 % (37.0-47.0); HEMOGLOBIN 10.9 gm/dL (12.0-15.0); MCH 31.4 pg (26.0-34.0); MCHC 33.7 g/dL (28.0-37.0); MCV 93.3 fL (80.0-100.0); RBC 3.48 mil/uL (4.20-5.00); RDW-CV 14.1 % (10.5-14.5); WBC 7.6 thou/uL (4.0-11.0)
--- NOTE | 2021-09-21 05:13 | NUR ---
ASSUMED CARES AT 1920. ALERT AND ORIENTED. 50% WT BEARING TO RUE WITH FULL ROM. ZOFRAN GIVEN PER PT REQUEST. MIN ASSIST WITH WALKER UP TO BATHROOM BUT STILL OCCASIONAL URINARY INCONTINENCE. TYLENOL GIVEN FOR PAIN. SLEPT OFF AND ON. CALL LIGHT IN REACH AND BED ALARM ON.
[2021-09-21 05:29] LABS: CALCIUM 8.7 mg/dL (8.5-10.1); CREATININE 0.7 mg/dL (0.6-1.3); POTASSIUM 3.4 mmol/L (3.5-5.1)
--- NOTE | 2021-09-22 05:29 | NUR ---
ASSUMED CARE AT 1915. ALERT AND ORIENTED. ZOFRAN GIVEN FOR NAUSEA BUT NO FURTHER EMESIS. URINARY INCONTINENCE. MIN ASSIST WITH GAIT BELT AND WALKER. SLEPT MOST OF THE NIGHT. CALL LIGHT IN REACH AND BED ALARM ON.
[2021-09-22 07:30] VITALS: BP 159/68
--- NOTE | 2021-09-22 17:12 | NUR ---
NO CHANGE THIS SHIFT. GI CONSULTED FOR PERSISTENT NAUSEA AND PT WILL HAVE A GASTRIC EMPTYING STUDY IN THE AM. PT IS AWARE AND KNOWS SHE WILL BE NPO AFTER MIDNIGHT.
[2021-09-22 19:48] VITALS: BP 136/56
--- NOTE | 2021-09-23 04:50 | NUR ---
ASSUMED PT CARE AT 1930. PT ALERT AND ORIENTED X4, POLITE AND COOPERATIVE WITH CARES. PRN ZOFRAN AND TYLENOL WITH HS MEDS. NPO AT MIDNIGHT FOR GASTRIC EMPTYING STUDY TODAY. PT UP WITH MIN ASSIST, GAIT BELT AND WALKER TO BATHROOM TO VOID. OCCASIONAL URINARY INCONTINENCE. SLEPT OFF AND ON OVERNIGHT. CALL LIGHT IN REACH, BED ALARM ON FOR SAFETY. HOURLY ROUNDING IN PROGRESS, WILL CONTINUE TO MONITOR.
[2021-09-23 07:43] VITALS: BP 143/64
--- NOTE | 2021-09-23 14:22 | NUR ---
PT TAKEN BY BED BY SURGICAL STAFF FOR EGD. DAUGHTER, CUBA, NOTIFIED OF PROCEDURE.
--- NOTE | 2021-09-23 18:39 | NUR ---
PT BACK FROM D. NEW ORDERS IN. SEE RESULTS.
[2021-09-23 20:00] VITALS: BP 125/56
--- NOTE | 2021-09-24 05:18 | NUR ---
ASSUMED CARE AT 1930. PATIENT RESTED IN BED, APPEARED SLEEPING. MOVES SELF IN BED. TAKES PILLS WHOLE WITH WATER. GIVEN EDUCATION ON NEW MEDICINES, NEEDS REINFORCEMENT. NO C/O NAUSEA. INCONTINENT IN BRIEF, SKIN CARE DONE. HOURLY ROUNDS CONTINUE. BED ALARM ON. CALL LITE IN REACH.
[2021-09-24 07:06] VITALS: BP 135/70
[2021-09-24 07:33] VITALS: BP 155/52
--- NOTE | 2021-09-24 14:22 | NUR ---
TEAM [facility] MEETING HELD THIS WEEK. PLAN FOR PT TO POSSIBLY D/C TO SNF NEXT WEEK PENDING GI CONSULT AND RECOMMENDATIONS. PT AND DTR INFORMED AND IN AGREEMENT. CM WILL REMAIN AVAILABLE TO ASSIST AND FOLLOW NEEDED.
--- NOTE | 2021-09-24 16:27 | NUR ---
PATIENT COMPLETED THERAPIES THIS SHIFT ORDERED. UP WITH ASSISTANCE, GAIT BELT AND CANE. NO COMPLAINTS OF PAIN THIS SHIFT. PATIENT C/O DIZZINESS WITH THERAPY, ORTHOSTATICS POSITIVE AND DR. ZHANG NOTIFIED. NO NEW ORDERS RECEIVED. REMAINS 50% WB TO RIGHT UPPER EXT.
[2021-09-24 19:43] VITALS: BP 134/58
--- NOTE | 2021-09-25 05:24 | NUR ---
ASSUMED CARES AT 1920. ALERT AND ORIENTED. PLEASANT. 50% WT BEARING RUE. DENIED ANY NAUSEA OR VOMITING. MIN ASSIST WITH GAIT BELT AND WALKER. UP TO BATHROOM. URINARY INCONTINENCE AT TIMES. SLEPT OFF AND ON. CALL LIGHT IN REACH AND BED ALARM ON.
[2021-09-25 07:30] VITALS: BP 142/77
--- NOTE | 2021-09-25 13:11 | EKG ---
[place] [address] ELECTROCARDIOGRAM REPORT Name: WALDEMARZACHARY ROBLERO Room: [address] ADM IN .R.#: [id number] Admission: 09/07/21 Attend Phys: Fernando Curtis MD Discharge: Date of : 38 Date of Service: 09/23/21 1519 Report #: [id number] THIS REPORT FOR: //name// [facility] Test Date: 2021-09-23 Test Time: 15:19:27 Pat Name: ZACHARY MEDEIROS Department: Room: [address] Gender: F Stock Mover: TELLY : 1940 Requested By: Leila Ferreira Order Number: [id number] MD: Marcelo Lawton Measurements Intervals [place] Rate: 69 P: 63 WY: 154 QRS: -8 QRSD: 83 T: 67 QT: 434 QTc: 465 Interpretive Statements Sinus rhythm Low voltage, extremity and precordial leads Compared to ECG 02/25/2012 10:01:21 Low QRS voltage now present Sinus tachycardia no longer present ST (T wave) deviation no longer present Electronically Signed On 09-25-2021 13:11:31 SERVICE OFFICER by Marcelo Lawton [email or web address] <ELECTRONICALLY SIGNED> By: Marcelo Lawton MD, FACC 09/25/21 1311 1519 1519 Marcelo Lawton MD, [facility] /EPI
--- NOTE | 2021-09-25 16:13 | NUR ---
PATIENT UP TO RECLINER THIS SHIFT. UP WITH ASSISTANCE; GAIT BELT AND WALKER. PATIENT AMBULATED IN HALLWAY WITH THIS NURSE X 2. UP FREQUENTLY TO BATHROOM, SMALL BM NOTED. PRN MIRALAX/COLACE GIVEN THIS AM PER PATIENT REQUEST. NO COMPLAINTS OF PAIN THIS SHIFT. POSSIBLE DISCHARGE TOMORROW OR SUNDAY WHEN SNF ARRANGED, PATIENT AND DAUGHTER AWARE.
[2021-09-25 19:38] VITALS: BP 168/59
--- NOTE | 2021-09-26 05:24 | NUR ---
ASSUMED CARE AT 1930. PATIENT RESTING IN BED. APPEARS TO HAVE SLEPT MUCH OF NIGHT. TAKES PILLS WHOLE WITH WATER. UP TO VOID A FEW TIMES BEFORE HS, BUT AFTER THAT WAS INCONTINENT INTO HER BRIEF. UP WITH GAIT BELT, WALKER. 50% WB TO RUE WITH FULL ROM. SHE CALLS TO HAVE IT CHANGED. SALINE LOCK TO LT FOREARM INTACT. DENIES PAIN. HOURLY ROUNDS CONTINUE. BED ALARM ON. CALL LITE IN REACH.
[2021-09-26 06:10] VITALS: BP 143/67
[2021-09-26 07:20] VITALS: BP 156/68
[2021-09-26 10:51] VITALS: BP 156/68
[2021-09-26] MEDS ORDERED: CIPROFLOXACIN500 M1 PO (14:40)
--- NOTE | 2021-09-26 16:10 | NUR ---
PATIENT COMPLETED THERAPIES THIS SHIFT. UP WITH ASSISTANCE; GAIT BELT AND WALKER. PATIENT OFF BALANCE AT TIMES. DEANGELO FROM SPOKE WITH PATIENTS DAUGHTER REGARDING POSSIBLE DISCHARGE TO [facility] TOMORROW. PER PATIENTS DAUGHTER WANTED PATIENT CHECKED FOR HER INTERMITTENT TREMORS. DR. ZHANG AND DR. MUNSON NOTIFIED AND NEURO CONS PLACED. PRN TYLENOL GIVEN X 1 THIS AFTERNOON FOR RIGHT SHOULDER PAIN. PRN PHENERGAN GIVEN X 1 WITH GOOD RELIEF NOTED, PER DR. ZHANG INCREASE DOSE TO 25MG. BM NOTED X 2 THIS SHIFT AND VOIDING PER TOILET.
[2021-09-26 19:00] VITALS: BP 146/58
--- NOTE | 2021-09-27 05:39 | NUR ---
ASSUMED CARE AT 1920. ALERT AND ORIENTED. DENIED ANY NAUSEA OR NEED FOR PAIN MEDS. MIN ASSIST WITH GAIT BELT AND WALKER. UP TO BATHROOM. URINARY INCONTINECE. AT 2100, DR TROTTER CAME TO SEE PT ABOUT TREMORS. HE WILL TRY TO SPEAK WITH PT'S DAUGHTER IN THE AM. PT SLEPT OFF AND ON. CALL LIGHT IN REACH AND BED ALARM ON.
[2021-09-27 08:00] VITALS: BP 162/71
[2021-09-27 11:00] VITALS: BP 149/70
[2021-09-27 11:01] VITALS: BP 140/65
[2021-09-27 11:02] VITALS: BP 94/52
[2021-09-27] MEDS ORDERED: AMBIEN5 MG PO (12:48)
[2021-09-27] MEDS ORDERED: BENTYL 10 MG CA10 MG PO (12:49)
[2021-09-27] MEDS ORDERED: DULCOLAX10 MG RECTAL (12:51)
[2021-09-27] MEDS ORDERED: CARAFATE1 GM PO (12:52)
[2021-09-27] MEDS ORDERED: CELEXA10 M1 PO (12:53)
[2021-09-27] MEDS ORDERED: COLACE100 MG PO (13:16)
[2021-09-27] MEDS ORDERED: COZAAR 25 MG TA25 M1 PO (13:17)
[2021-09-27] MEDS ORDERED: FLONASE 0.05%50 MCG NARES (13:19)
[2021-09-27] MEDS ORDERED: K-DUR10 MEQ PO (13:22)
[2021-09-27] MEDS ORDERED: MIRALAX119 GM PO (13:37)
[2021-09-27] MEDS ORDERED: MYLANTA MAXIMU355 ML PO (13:39)
[2021-09-27] MEDS ORDERED: MIDODRINE HCL 55 M1 PO (13:40)
[2021-09-27] MEDS ORDERED: PROMETHAZINE (13:43)
[2021-09-27] MEDS ORDERED: PROTONIX40 M2 PO (13:44)
[2021-09-27] MEDS ORDERED: PROVIGIL 200 M200 MG PO (13:45)
[2021-09-27] MEDS ORDERED: RESTASIS1 EACH OPHTHALMIC (13:47)
[2021-09-27] MEDS ORDERED: SYNTHROID75 MC1 PO (13:48)
[2021-09-27] MEDS ORDERED: TUMS200 MG PO (13:49)
[2021-09-27] MEDS ORDERED: THYLENOL (13:50)
[2021-09-27 14:02] VITALS: BP 156/68
--- NOTE | 2021-09-27 14:26 | NUR ---
PATIENT ALERT AND ORIENTED WITH PERIODS OF FORGETFULNESS. UP WITH 1 ASSIST, GAIT BELT AND WALKER. BECAME DIZZY AND LIGHT HEADED WITH THERAPY WHEN UP TODAY. ORTHOSTATIC B/P;S DONE. REHAB DR AND MEDICAL DR NOTIFIED AND STILL OK WITH D/C TODAY. USEING TYLENOL FOR PAIN. REMAINS 50%WEIGHTBEARING TO RIGHT UPPER EXTREMITY. [facility] SHE WAS NOTIFIED OF MOST RECENT ASSESSMENT, ABNORMAL LABS AND V/S. W/C VAN HERE AT 1400 TO TRANSFER PATIENT.
--- NOTE | 2021-09-27 16:10 | NUR ---
PLAN FOR THE PT TO D/C TO SNF TODAY AT [facility]. PT AND DTR IN AGREEMENT. [facility] ARRANGED TRANSPORTATION FOR 1400. RN CALLED REPORT. CM WILL REMAIN AVAILABLE TO ASSIST AND FOLLOW NEEDED. [facility] PHONE: [phone]
--- NOTE | 2021-09-28 11:07 | PATH ---
[facility] [address] [place] [address] PATHOLOGY RPT PROCEDURE Name: NELY MEDEIROS Room: [facility]- DIS IN M.R.#: [id number] Admission: 09/07/21 Date of : 36 Discharge: 09/27/21 Report #: [id number] Path Case #: [id number] [facility] Accession Number: [id number] . 01 Material submitted: . gastrointestinal site - GASTRIC BIOPSY FOR GASTRITIS . 01 Clinical history: . EGD IN OR . 02 Diagnosis: Gastric biopsy: - Nonspecific mild chronic and moderate active gastritis with erosion, negative for Helicobacter pylori organisms, granulomas and dysplasia. (BETTYE:edna; 09/27/2021) . Special stain: H. pylori immuno MBR 09/27/2021 1324 Local . 02 Electronically signed: . Stewart Hook MD, Pathologist NPI- [id number] . 01 Gross description: . The specimen is received in formalin, labeled "Nely Medeiros gastric BX for gastritis". Received are 3 segments of pale perez tissue ranging in size from 0.2-0.3 cm in maximum dimensions. The specimen is entirely submitted in cassette A1. ([facility]; 09/26/2021) NRI/NRI 09/26/2021 1554 Local . 02 Pathologist provided ICD-10: K29.50, K25.9 . 02 CPT . 586792, [id number] Specimen Comment: A courtesy copy of this report has been sent to [phone] Specimen Comment: [id number], Specimen Comment: Report sent to , DR PUGA / DR FULLER Specimen Comment: A duplicate report has been generated due to demographic updates. Performed at: [address], [place] [id number] MD Joao Morley MD Phone: [phone] Performed at: [address] [place] [address] PATHOLOGY RPT PROCEDURE Name: NELY MEDEIROS Room: [address] IN M.R.#: [id number] Admission: 09/07/21 Date of : 36 Discharge: 09/27/21 Report #: [id number] Path Case #: [id number] [address] KUMAR Arrington [id number] MD Stewart Hook MD Phone: [phone]
== END 2021-09-27 14:15 | DRG 948 ==
LOC: M.REH 14:52
PROVIDERS: Internal Medicine; ADMIT Physical Medicine & Rehabilitation; ATTEND Physical Medicine & Rehabilitation
PROC: 0DB68ZX Excision of Stomach, Via Natural or Artificial Opening Endoscopic, Diagnostic (ICD-10-PCS; principal; 2021-09-23)
DX: R53.81 Other malaise (principal); S42.211A Unspecified displaced fracture of surgical neck of right humerus, initial encounter for closed fracture; E44.1 Mild protein-calorie malnutrition; R65.10 Systemic inflammatory response syndrome (SIRS) of non-infectious origin without acute organ dysfunction; N30.00 Acute cystitis without hematuria; M80.021A Age-related osteoporosis with current pathological fracture, right humerus, initial encounter for fracture; E87.1 Hypo-osmolality and hyponatremia; Z68.1 Body mass index [BMI] 19.9 or less, adult; K44.9 Diaphragmatic hernia without obstruction or gangrene; K21.9 Gastro-esophageal reflux disease without esophagitis; K31.9 Disease of stomach and duodenum, unspecified; E78.5 Hyperlipidemia, unspecified; F32.9 Major depressive disorder, single episode, unspecified; D64.9 Anemia, unspecified; R68.81 Early satiety; I95.1 Orthostatic hypotension; E87.6 Hypokalemia; B95.2 Enterococcus as the cause of diseases classified elsewhere; W18.39XA Other fall on same level, initial encounter; Z90.710 Acquired absence of both cervix and uterus; Z86.73 Personal history of transient ischemic attack (TIA), and cerebral infarction without residual deficits; Z80.3 Family history of malignant neoplasm of breast; Y93.89 Activity, other specified; Y92.89 Other specified places as the place of occurrence of the external cause; Y99.8 Other external cause status